=== PATIENT | female | born 1990 | race Asian ===

== ENCOUNTER 2019-08-03 11:07 | Observation (INO) | payer BC ==
[~2019-08-03] VITALS: Ht 160 cm; Wt 60.3 kg
== END 2019-08-03 13:14 | disposition home or self-care (01) ==
LOC: SPU 11:07
PROVIDERS: ADMIT Obstetrics & Gynecology; ATTEND Obstetrics & Gynecology
DX: Z34.93 Encounter for supervision of normal pregnancy, unspecified, third trimester (principal); Z3A.39 39 weeks gestation of pregnancy
CPT/HCPCS: 76819; G0378

== ENCOUNTER 2019-08-06 16:35 | Inpatient (IN) | payer BC ==
[~2019-08-06] VITALS: Ht 154.9 cm; Wt 61.2 kg
[2019-08-07] MEDS ORDERED: LR 500 ML IV ONE ×2 (01:20→05:39)
[2019-08-07] MEDS ORDERED: LR 1,000 ML IV ONE (01:20)
[2019-08-07] MEDS ORDERED: OXYTOCIN/0.9 % SODIUM CHLORIDE 1,000 ML IV SCH ×2 (01:20→11:32)
[2019-08-07 01:25] VITALS: BP_SYST 103
[2019-08-07] MEDS ORDERED: NALBUPHINE HCL 10 MG/ML AMP IM PRN (01:30)
[2019-08-07] MEDS ORDERED: TERBUTALINE SULFATE 1 MG/ML VIAL SUBCUT ONE (01:30)
[2019-08-07] MEDS ORDERED: NALBUPHINE HCL 10 MG/ML AMP IVP PRN (01:30)
[2019-08-07] MEDS: LR 1,000 ML IV SCH ×2 (01:40→06:00)
[2019-08-07 02:05] LABS: EOSINOPHILS % (AUTO) 0.4 % (0.0-4.0); HEMOGLOBIN 11.5 g/dL (12.0-16.0); LYMPHOCYTES # (AUTO) 1.9 K/uL (1.0-5.5); MONOCYTES # (AUTO) 0.6 K/uL (0.0-1.0); PLATELET COUNT (AUTO) 227 K/uL (130-430); WHITE BLOOD COUNT (AUTO) 9.2 K/uL (4.8-10.8)
[2019-08-07 02:24] LABS: BASOPHILS % (AUTO) 0.4 % (0.0-2.0); HEMATOCRIT 33.1 % (36-48); LYMPHOCYTES % (AUTO) 20.6 % (20.5-51.5); MEAN CORPUSCULAR HEMOGLOBIN 31 pg (27-31); MEAN CORPUSCULAR HGB CONC 35 % (32-36); MEAN CORPUSCULAR VOLUME 89 fL (79.0-98.0); MONOCYTES % (AUTO) 6.6 % (1.7-9.3); NEUTROPHILS # (AUTO) 6.6 K/uL (1.8-7.7); RED BLOOD CELL COUNT(AUTO) 3.72 MIL/uL (4.2-6.2)
[2019-08-07] MEDS ORDERED: fentaNYL CITRATE/PF 100 MCG/2 ML AMP ONE (05:32)
[2019-08-07] MEDS ORDERED: ROPIVACAINE HCL/PF 0.2% 200 ML ONE (05:33)
[2019-08-07] MEDS ORDERED: FENT2mCg/mL-ROPIVA0.2%/NS EPID 200 ML EP SCH (05:45)
[2019-08-07] MEDS ORDERED: OXYTOCIN/0.9 % SODIUM CHLORIDE 1,000 ML IV ONE (11:32)
[2019-08-07] MEDS ORDERED: OXYCODONE/ACETAMINOPHEN 5-325 TABLET PO PRN ×2 (11:45)
[2019-08-07] MEDS ORDERED: HYDROCORTISONE 0.5%, 28.35 GM TOPICAL CREAM TP PRN (11:45)
[2019-08-07] MEDS ORDERED: ANUSOL 1 EA SUPP.RECT (PREPARATION H) RC PRN (11:45)
[2019-08-07] MEDS ORDERED: RHO(D) IMMUNE GLOBULIN/MALTOSE 1500 UNITS/1.3 ML (WINHRO) IM PRN (11:45)
[2019-08-07] MEDS ORDERED: DERMOPLAST SPRAY TP PRN (11:45)
[2019-08-07] MEDS ORDERED: WITCH HAZEL LEAF 1 MED.PAD MED.PAD TP PRN (11:45)
[2019-08-07] MEDS ORDERED: MEASLES,MUMPS&RUBELLA VACC/PF 12500 UNIT/0.5 ML VIAL SUBQ PRN (11:45)
[2019-08-07] MEDS ORDERED: DIPH-TET-PERTUS Vaccine 0.5 ML VIAL (ADACEL) I.M. PRN (11:45)
[2019-08-07] MEDS ORDERED: SENNOSIDES/DOCUSATE SODIUM 1 TAB TABLET(SENOKOT-S) PO PRN (11:45)
[2019-08-07] MEDS ORDERED: METHYLERGONOVINE MALEATE 0.2 MG TABLET PO PRN (11:45)
[2019-08-07] MEDS ORDERED: LANOLIN 7 GM OINT. TP PRN (11:45)
[2019-08-07] MEDS: IBUPROFEN 600 MG TABLET PO SCH (12:39)
[2019-08-07] MEDS: DOCUSATE SODIUM 100 MG CAPSULE PO PRN (14:30)
[2019-08-07] MEDS ORDERED: CEFAZOLIN 2 GM IVPB PREMIX 50 ML IV ONE (17:00)
[2019-08-07] MEDS ORDERED: MORPHINE SULFATE 10MG/10ML PF AMP EP ONE (17:15)
[2019-08-07] MEDS ORDERED: LR 1,000 ML IV.SOLN IV ONE (17:15)
[2019-08-07] MEDS ORDERED: NS IRRIG SOLN 1000 ML IR ONE (17:15)
[2019-08-07] MEDS ORDERED: BUPIVACAINE /DEX PF 0.75% SPINAL 2 ML AMP INJ ONE (17:15)
[2019-08-07] MEDS ORDERED: MIDAZOLAM HCL 5 MG/5 ML VIAL IVP ONE (17:15)
[2019-08-07] MEDS ORDERED: LR 1,000 ML IV SCH (18:06)
[2019-08-07] MEDS ORDERED: NALOXONE HCL 1 MG in NACL 0.9% 1,000 ML IV PRN ×4 (18:06)
[2019-08-07 18:15] VITALS: BP_SYST 89
[2019-08-07] MEDS ORDERED: ONDANSETRON HCL 4 MG/2 ML VIAL IVP PRN (18:15)
[2019-08-07] MEDS ORDERED: HYDROmorphone 2 MG/ML VIAL IVP PRN ×2 (18:15)
[2019-08-07] MEDS ORDERED: NALOXONE HCL 0.4 MG/ML AMP (NARCAN) IVP PRN ×3 (18:15)
[2019-08-07] MEDS ORDERED: KETOROLAC TROMETHAMINE 60 MG/2 ML VIAL IM PRN (18:15)
[2019-08-07] MEDS ORDERED: HYDROmorphone 1 MG INJ. 1 MG/ML AMPUL IVP PRN (18:15)
[2019-08-07] MEDS ORDERED: DIPHENHYDRAMINE INJ 50 MG/ML VIAL IVP PRN (18:15)
[2019-08-07] MEDS ORDERED: MEPERIDINE HCL/PF 25 MG/ML DISP.SYRIN IVP PRN ×2 (18:15)
[2019-08-07] MEDS ORDERED: DIPHENHYDRAMINE HCL 50 MG CAPSULE PO PRN (18:15)
[2019-08-07] MEDS ORDERED: TEMAZEPAM 15 MG CAPSULE PO PRN (21:00)
[2019-08-08] MEDS: ceFAZolin SODIUM 2 GM in D5W 100 ML IV SCH ×2 (02:01→11:15)
[2019-08-08] MEDS: IBUPROFEN 600 MG TABLET PO SCH ×4 (06:08→18:08)
[2019-08-08 07:21] LABS: BASOPHILS % (AUTO) 0.3 % (0.0-2.0); EOSINOPHILS % (AUTO) 0.4 % (0.0-4.0); HEMATOCRIT 27.2 % (36-48); HEMOGLOBIN 9.3 g/dL (12.0-16.0); LYMPHOCYTES # (AUTO) 1.6 K/uL (1.0-5.5); MEAN CORPUSCULAR HEMOGLOBIN 31 pg (27-31); MEAN CORPUSCULAR HGB CONC 34 % (32-36); MEAN CORPUSCULAR VOLUME 90 fL (79.0-98.0); MONOCYTES # (AUTO) 0.5 K/uL (0.0-1.0); MONOCYTES % (AUTO) 5.3 % (1.7-9.3); PLATELET COUNT (AUTO) 176 K/uL (130-430); RED BLOOD CELL COUNT(AUTO) 3.03 MIL/uL (4.2-6.2); WHITE BLOOD COUNT (AUTO) 10.3 K/uL (4.8-10.8)
[2019-08-08 08:56] LABS: PROTHROMBIN TIME 9.7 SECS (9.5-12.5)
[2019-08-08] MEDS: DOCUSATE SODIUM 100 MG CAPSULE PO PRN (12:38)
[2019-08-09] MEDS: IBUPROFEN 600 MG TABLET PO SCH ×3 (00:06→12:39)
[2019-08-09] MEDS: DOCUSATE SODIUM 100 MG CAPSULE PO PRN (06:12)
== END 2019-08-09 15:45 | disposition home or self-care (01) | DRG 768 ==
LOC: UNDOADMIN 08-07 00:45 → SPU 08-07 00:45
PROVIDERS: ADMIT Obstetrics & Gynecology; ATTEND Obstetrics & Gynecology
PROC: 0U9G0ZZ Drainage of Vagina, Open Approach (ICD-10-PCS; 2019-08-07)
PROC: 0W8NXZZ Division of Female Perineum, External Approach (ICD-10-PCS; 2019-08-07)
PROC: 00HU33Z Insertion of Infusion Device into Spinal Canal, Percutaneous Approach (ICD-10-PCS; 2019-08-07)
PROC: 3E0R3BZ Introduction of Anesthetic Agent into Spinal Canal, Percutaneous Approach (ICD-10-PCS; 2019-08-07)
PROC: 10D07Z6 Extraction of Products of Conception, Vacuum, Via Natural or Artificial Opening (ICD-10-PCS; principal; 2019-08-07 17:00)
DX: O99.89 Other specified diseases and conditions complicating pregnancy, childbirth and the puerperium (principal); Z37.0 Single live birth; O90.2 Hematoma of obstetric wound; Z3A.41 41 weeks gestation of pregnancy; K64.9 Unspecified hemorrhoids; R00.1 Bradycardia, unspecified
CPT/HCPCS: 36415; 85025; 85384-TC; 85610-TC; 85730-TC; 86592; 86886; 86900; 86901; J0690; J1200; J2250; J2274; J2405; J2590; J3010; J3490; J7060; J7120